=== PATIENT | female | born 1965 | race Caucasian/White ===

== ENCOUNTER 2021-11-19 12:16 | Emergency (ER) | payer OTHER ==
[~2021-11-19 12:16] MED LIST: BISOPROLOL-HCT1 EACH PO; CLARITIN10 MG PO; DUONEB 2.5-0.5M1 AMP INH; FLUOXETINE HCL40 MG PO; LISINOPRIL 10MG10 MG PO; NAPROXEN500 MG PO; PANTOPRAZOLE SO40 MG PO; SYNTHROID112 MC1 PO; TAMIFLU 75MG CA75 MG PO
[2021-11-19] MEDS ORDERED: HYDROCODON-ACE1 EAC2 PO (14:44)
== END 2021-11-19 15:03 | disposition home or self-care (01) ==
LOC: FER 12:16
DX: S00.12XA Contusion of left eyelid and periocular area, initial encounter (principal); S60.212A Contusion of left wrist, initial encounter; S00.81XA Abrasion of other part of head, initial encounter; M25.511 Pain in right shoulder; I10 Essential (primary) hypertension; J44.9 Chronic obstructive pulmonary disease, unspecified; Z88.0 Allergy status to penicillin; W01.0XXA Fall on same level from slipping, tripping and stumbling without subsequent striking against object, initial encounter; Y92.009 Unspecified place in unspecified non-institutional (private) residence as the place of occurrence of the external cause
CPT/HCPCS: 70450; 70486; 73030; 73110